=== PATIENT | male | born 2005 | race Caucasian/White ===

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

== ENCOUNTER 2024-11-05 06:15 | Day surgery (SDC) | payer OTHER ==
[2024-11-05] MEDS ORDERED: CEFTRIAXONE SODIUM 2,000 MG VIAL ONE (07:25)
[2024-11-05] MEDS ORDERED: METRONIDAZOLE/SODIUM CHLORIDE 500 MG/100 ML PIGGYBACK IV ONE (07:32)
[2024-11-05] MEDS ORDERED: DIBUCAINE 30 GM TUBE ONE (09:53)
[2024-11-05] MEDS ORDERED: HEMOSTATIC MATRIX 1 KIT KIT TOP ONE (09:53)
[2024-11-05] MEDS ORDERED: LEVOFLOXACIN500 MG PO (11:10)
[2024-11-05] MEDS ORDERED: PERCOCET 5-3251 EACH PO (11:10)
== END 2024-11-05 15:50 | disposition home or self-care (01) ==
LOC: CIR.AMB 06:15
PROVIDERS: ATTEND Surgery
DX: L05.01 Pilonidal cyst with abscess (principal)